=== PATIENT | female | born 2000 | race Caucasian/White ===

== ENCOUNTER 2023-03-18 13:37 | Outpatient (CLI) | payer BC, OTHER | END 2023-03-18 13:38 | disposition home or self-care (01) | LOC: CSHULT 13:37 | PROVIDERS: ATTEND Nurse Practitioner Women's Health | DX: Z34.02 Encounter for supervision of normal first pregnancy, second trimester (principal); Z3A.22 22 weeks gestation of pregnancy | CPT/HCPCS: 76805 ==